=== PATIENT | male | born 1960 | race Caucasian/White ===

== ENCOUNTER 2018-02-11 18:13 | Emergency (ER) | payer OTHER ==
[~2018-02-11] VITALS: Ht 175.3 cm; Wt 119.0 kg
[2018-02-11] MEDS ORDERED: WELLBUTRIN SR150 MG PO (18:39)
[2018-02-11] MEDS ORDERED: BYSTOLIC5 MG PO (18:40)
[2018-02-11] MEDS ORDERED: PLAVIX75 MG PO (18:40)
[2018-02-11] MEDS ORDERED: VYTORIN1 TA1 PO (18:40)
[2018-02-11] MEDS ORDERED: ASPIRIN ADULT L81 M2 PO (18:41)
[2018-02-11] MEDS ORDERED: PROTONIX40 M2 PO (18:41)
[2018-02-11] MEDS ORDERED: TRAMADOL HCL50 MG PO (19:03)
[2018-02-11 19:34] VITALS: BP 112/70
== END 2018-02-11 19:34 | disposition home or self-care (01) | DRG 563 ==
LOC: ED 18:13
DX: S39.012A Strain of muscle, fascia and tendon of lower back, initial encounter (principal); X50.0XXA Overexertion from strenuous movement or load, initial encounter; Y93.E6 Activity, residential relocation; Y92.009 Unspecified place in unspecified non-institutional (private) residence as the place of occurrence of the external cause

== ENCOUNTER 2018-10-08 07:22 | Emergency (ER) | payer OTHER ==
[~2018-10-08] VITALS: Ht 175.3 cm; Wt 90.0 kg
[~2018-10-08 07:22] MED LIST: ASPIRIN ADULT L81 M2 PO; BYSTOLIC5 MG PO; PLAVIX75 MG PO; PROTONIX40 M2 PO; TRAMADOL HCL50 MG PO; VYTORIN1 TA1 PO; WELLBUTRIN SR150 MG PO
[2018-10-08 08:43] LABS: HEMATOCRIT 50.6 % (39.0-50.0); IMMATURE GRANULOCYTES 0.7 % (0.0-5.0); MEAN CELL VOLUME 89.6 fL CALC (80.0-100.0); MEAN CORPUSCULAR HGB 30.1 pG CALC (26.0-32.0); MEAN CORPUSCULAR HGB CONC 33.6 g/L CALC (32.0-36.0); NEUT# 15.9 thou/uL (1.82-7.42); RED BLOOD COUNT 5.65 mill/uL (4.70-6.10); RED CELL DISTRI WIDTH 13.7 % (11.5-15.5)
[2018-10-08 08:55] LABS: ALBUMIN 3.6 g/dL (3.2-5.0); CREATININE 1.7 mg/dL (0.7-1.3); POTASSIUM 4.3 mmol/l (3.5-5.1); TOTAL PROTEIN 6.7 g/dL (6.3-8.2)
[2018-10-08] MEDS ORDERED: METFORMIN500 MG PO (09:21)
[2018-10-08] MEDS ORDERED: METOPROL TAR25 MG PO (09:21)
[2018-10-08] MEDS ORDERED: OZEMPIC2 MG/1.5 M IM (09:22)
[2018-10-08] MEDS ORDERED: CRESTOR40 MG PO (09:24)
[2018-10-08] MEDS ORDERED: PREDNISONE50 MG PO (11:27)
[2018-10-08] MEDS ORDERED: EPIPEN 2-P0.3 MG/0.3 IM (11:27)
[2018-10-08 11:50] VITALS: BP 104/69
== END 2018-10-08 11:50 | disposition home or self-care (01) | DRG 916 ==
LOC: ED 07:22
PROVIDERS: Family Medicine
DX: T78.3XXA Angioneurotic edema, initial encounter (principal); R50.9 Fever, unspecified